=== PATIENT | female | born 1985 | race Caucasian/White ===

== ENCOUNTER → 2016-08-10 | Outpatient (CLI) | payer BC ==
[~2016-08-10] VITALS: Ht 154.9 cm; Wt 70.0 kg
[~2016-08-10] MED LIST: PRENATAL TABLE1 EAC3 PO; PROBIOTIC1 EAC1 PO
[2016-08-10 14:29] VITALS: BP 107/51
== END | disposition home or self-care (01) ==
LOC: IVINF 14:00
DX: Z31.82 Encounter for Rh incompatibility status (principal)
CPT/HCPCS: 96372; J2790

== ENCOUNTER 2016-11-09 19:46 | Inpatient (IN) | payer BC ==
[~2016-11-09] VITALS: Ht 154.9 cm; Wt 81.4 kg
[2016-11-09 20:09] VITALS: BP 132/77
[2016-11-09 21:03] LABS: EOSINOPHIL (%) 0.1 % (0-5); HEMATOCRIT 40.5 % (36.0-46.0); IMMATURE GRANULOCYTE (%) 0.9 % (0.0-0.7); IMMATURE GRANULOCYTE COUNT 0.2 K/uL; INSTRUMENT ABS NEUTROPHIL CT 16.2 K/uL; LYMPHOCYTE COUNT 1.1 K/uL (1.0-2.8); MCH 34.4 PG (29.0-34.0); MCHC 34.8 G/DL (30.0-36.0); MCV 98.8 FL (83-99); MEAN PLAT.VOLUME 10.3 uM^3 (9.5-12.4); MONOCYTE COUNT 0.7 K/uL (0-0.8); NEUTROPHIL COUNT 16.2 K/uL (1.8-6.4); PLATELET COUNT 224 K/uL (156-360); RBC DIS.WIDTH-CV 12.4 % (11.8-14.6); RBC DIS.WIDTH-SD 45.3 % (39-53); WHITE BLOOD COUNT 18.2 K/uL (4.1-10.2)
[2016-11-09 21:05] VITALS: BP 112/59
[2016-11-10] VITALS (10 sets, daily range): BP systolic 93–117; BP diastolic 51–63
[2016-11-10 07:52] LABS: EOSINOPHIL (%) 0.2 % (0-5); IMMATURE GRANULOCYTE (%) 0.9 % (0.0-0.7); IMMATURE GRANULOCYTE COUNT 0.2 K/uL; INSTRUMENT ABS NEUTROPHIL CT 13.8 K/uL; LYMPHOCYTE COUNT 1.4 K/uL (1.0-2.8); MCH 33.7 PG (29.0-34.0); MEAN PLAT.VOLUME 10.4 uM^3 (9.5-12.4); MONOCYTE (%) 5.7 % (3-12); MONOCYTE COUNT 0.9 K/uL (0-0.8); NEUTROPHIL (%) 84.6 % (45-76); NEUTROPHIL COUNT 13.8 K/uL (1.8-6.4); PLATELET COUNT 171 K/uL (156-360); RBC DIS.WIDTH-CV 12.6 % (11.8-14.6); RBC DIS.WIDTH-SD 45.5 % (39-53); WHITE BLOOD COUNT 16.3 K/uL (4.1-10.2)
[2016-11-10 07:55] LABS: RED BLOOD COUNT 3.03 M/uL (3.80-5.20)
[2016-11-11 02:57] VITALS: BP 109/54
[2016-11-11 08:13] VITALS: BP 113/55
[2016-11-11 11:23] VITALS: BP 100/52
[2016-11-11 15:27] VITALS: BP 110/52
[2016-11-11 19:13] VITALS: BP 102/59
[2016-11-11 22:53] VITALS: BP 103/50
[2016-11-12 23:00] VITALS: BP 112/53
[2016-11-13 07:35] VITALS: BP 103/53
[2016-11-13] MEDS ORDERED: CHROMAGEN,1 CAPSULE PO (12:34)
[2016-11-13] MEDS ORDERED: ENDOCET 5-3251 EACH PO (12:34)
[2016-11-13] MEDS ORDERED: IBUPROFEN800 MG PO (12:34)
[2016-11-13] MEDS ORDERED: DOCUSATE SODIU100 MG PO (12:34)
== END 2016-11-13 15:54 | disposition home or self-care (01) | DRG 765 ==
LOC: LDRP-OP → 2WEST 19:47 → LDRP-OP 12-07 08:25
PROVIDERS: Advanced Practice Midwife; Obstetrics & Gynecology Obstetrics
PROC: 10D00Z1 Extraction of Products of Conception, Low, Open Approach (ICD-10-PCS; principal; 2016-11-09)
DX: O32.3XX0 Maternal care for face, brow and chin presentation, not applicable or unspecified (principal); O32.2XX0 Maternal care for transverse and oblique lie, not applicable or unspecified; O76 Abnormality in fetal heart rate and rhythm complicating labor and delivery; D62 Acute posthemorrhagic anemia; O99.02 Anemia complicating childbirth; O48.0 Post-term pregnancy; Z3A.40 40 weeks gestation of pregnancy; Z37.0 Single live birth; Z23 Encounter for immunization
CPT/HCPCS: 85025; J0131; J0690; J1885; J2175; J2274; J2405; J3010; J7120